=== PATIENT | male | born 1990 | race Caucasian/White ===

== ENCOUNTER 2016-11-23 18:15 | Inpatient (IN) | payer OTHER ==
--- NOTE | ~2016-11-23 | CR72 ---
[facility] A Service of [facility] RADIOLOGY TEXT RESULTS PATIENT: GUICHO CHACON LOCATION: [facility] : [birth year] UNIT #: [id number] AGE: [address]: Guillermo Cano MD SEX: M ORDER DR: [id number] [facility]. [place], [place] [address] [id number] I MR#: [id number] Acc #: [id number] NAME: GUICHO CHACON : 1990 SEX: M STUDY DATE/TIME: 11/23/2016 18:19 UNIT: [address] ROOM: [facility] STUDY DESCRIPTION: CR Chest Single View Portable Attending Physician: Guillermo Caon M.D. Referring Physician: Alyson Primary Care Physician Ordering Physician: Asha Yang M.D. Primary Care Physician: No Primary Care Physician MEDICAL IMAGING REPORT This report is preliminary unless electronic signature is present EXAM Portable chest. DATE OF EXAM 11/23/2016 HISTORY Chest pain, tachycardia and shortness of air today. Meth and heroin overdose. FINDINGS A single AP portable view of the chest shows both lungs to be clear. The heart is normal in size. The mediastinal contour is normal. No significant bone abnormalities are seen. IMPRESSION Normal portable chest. Dictated by... Leland Duran M.D. THIS IS AN ELECTRONICALLY VERIFIED REPORT Leland Duran M.D. at 11/24/2016 3:35 PM DFL/jt TD: 11/24/2016 00:16 JOB #: [id number] MEDICAL IMAGING REPORT [facility] A Service of [facility] RADIOLOGY TEXT RESULTS PATIENT: GUICHO CHACON LOCATION: [facility] : 89 UNIT #: [id number] AGE: [address]: Guillermo Cano MD SEX: M ORDER DR: COPY
--- NOTE | ~2016-11-23 | DS ---
Unit #: [id number] #: [id number] Patient: GUICHO KERR [id number] [address] [address] [id number] I MR#: [id number] NAME: GUICHO KERR ROOM: 337 Age: 26 Sex: M Admission Date: 11/23/2016 : 1990 Discharge Date: 11/24/2016 Attending Physician: Guillermo Cano M.D. Primary Care Physician: No Primary Care Physician DISCHARGE SUMMARY PRINCIPAL DIAGNOSES 1. 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 2. Acute rhabdomyolysis. 3. Transaminitis. 4. Polysubstance abuse, including amphetamines and heroin. CONSULTANTS Dr. Heath, psychiatry. DIAGNOSTIC STUDIES IMAGING: Chest x-ray on November 23, 2016, which was normal. CLINICAL HISTORY AND HOSPITAL COURSE Mr. Kerr is a 26-year-old male who was brought to the emergency department with sensation of his heart racing and being increasing confused and agitated. Please refer to H and P for further details. Urine drug screen in the emergency department was positive for amphetamines. The patient was also found to be in acute rhabdomyolysis with a CK level of greater than 5,000. AST and ALT were also elevated secondary to his rhabdomyolysis, and the patient was subsequently admitted. The patient was placed on IV fluids and provided Haldol p.r.n. The patient slept most of the night and awakened the morning of the 25th alert and oriented x3 per nursing. The patient was adamant that he was going home, and given he was alert and oriented x3, he signed out against medical advice prior to being seen by me. Dictated by... Felicia Zarate M.D. REGI/susie TD: 11/26/2016 11:34 JOB #: [id number] Unit #: [id number] #: [id number] Patient: GUICHO KERR DISCHARGE SUMMARY X Felicia Zarate MD DISCHARGE SUMMARY
--- NOTE | ~2016-11-23 | EKG ---
PATIENT: GUICHO CHACON UNIT #: [id number] Ventricular Rate: 131 BPM Atrial Rate: 131 BPM P-R Interval: 130 ms QRS Duration: 74 ms Q-T Interval: 298 ms QTC Calculation(Bezet): 440 ms P [place]: 82 degrees Calculated R [place]: 83 degrees Calculated T [place]: 68 degrees Diagnosis Line: Sinus tachycardia Diagnosis Line: Otherwise normal ECG Diagnosis Line: When compared with ECG of 11-MAY-2016 10:32, Diagnosis Line: Vent. rate has increased BY 57 BPM Diagnosis Line: Confirmed by PATY LINDO MD ([id number]) on Diagnosis Line: 11/25/2016 10:22:30 PM INTERPRETING MD: SHANTA
--- NOTE | ~2016-11-23 | HP ---
Unit #: [id number] #: [id number] Patient: GUICHO CHACON [id number] [address] [address] [id number] I MR#: [id number] NAME: GUICHO CHACON ROOM: 337 Age: 26 Sex: M Admission Date: 11/23/2016 : 1990 Attending Physician: Guillermo Cano M.D. Referring Physician: No Primary Care Physician Primary Care Physician: No Primary Care Physician HISTORY AND PHYSICAL CHIEF COMPLAINT Tachycardia. DISCUSSION This is a 26-year-old gentleman who has a history of (1) substance abuse, use of methamphetamine and heroin, long history of IV drug abuse, and history of kidney stones. He presented to ER with chief complaining of having agitation, tachycardic. He was using the methamphetamine today. He came to the emergency room. In the ER, on workup, patient was found to have rhabdomyolysis. CK total 5047, AST 76, ALT 53, and been admitted. PAST MEDICAL HISTORY 1. Long history of (2) substance use with IV heroin and history of methamphetamine use with psychosis. 2. History of kidney stones, status post multiple lithotripsies. ALLERGIES No known drug allergies. HOME MEDICATIONS Does not take any medication at home. TWELVE REVIEW OF SYSTEMS CONSTITUTIONAL: No fever. No chills. CARDIOVASCULAR: No chest pain. PULMONARY: No cough. No wheezing. GI: No nausea. No vomiting. PHYSICAL EXAMINATION GENERAL APPEARANCE: Young man lying in the bed comfortably. Currently not in any distress. VITAL SIGNS: Current vitals are following: Temperature 98.4, heart rate 143, respiratory rate 18, blood pressure is 153/66, and repeat heart rate now is 116. HEENT: Pupils equal, round, and reactive to light and accommodation. Head normocephalic and atraumatic. NECK: Supple. No JVD. HEART: S1 and S2. Regular rate and rhythm. ABDOMEN: Soft, nontender, and nondistended. Bowel sounds positive. EXTREMITIES: Inspection normal. No cyanosis, no clubbing, and no edema. NEUROLOGICAL: No focal neurologic deficit. DIAGNOSTIC STUDIES LABORATORY: Workup is following: Urine drug screen is positive for Unit #: [id number] #: [id number] Patient: GUICHO CHACON. Sodium 137, potassium 3.6, chloride 105, glucose 107, BUN 13, creatinine 1, AST 76, and ALT 63. CK total 5047. UA is negative. Ammonia level is 34. Lactic acid level is 1.6. INR is 1.1. Troponin less than 0.05. White count is 14, hemoglobin 12, hematocrit 38, and platelets 226. Glucose 104. IMAGING: Chest x-ray negative. ASSESSMENT AND PLAN 1. Polysubstance abuse. 2. Methamphetamine abuse with psychosis. 3. Rhabdomyolysis. 4. Abnormal LFT. Plan to admit to hospital. IV fluids. Eliu tracy Psychiatry, Dr. Heath, to evaluate. Dictated by Wild Maharaj/mechelle TD: 11/24/2016 11:06 JOB #: [id number] HISTORY AND PHYSICAL X X HISTORY AND PHYSICAL
[2016-11-23 18:49] LABS: BASOPHIL% 0.1 % (0-2.5); EOSINOPHIL% 0.1 % (0.0-7.0); HEMATOCRIT 38.8 % (38.0-50.0); HEMOGLOBIN 12.7 gm/dL (13.0-16.0); LYMPHOCYTE# 0.8 X10e3 (1.0-3.5); LYMPHOCYTE% 5.3 % (17.0-45.0); MEAN CELL VOLUME 94.5 FL (83-96); MEAN CORPUSCULAR HGB CONC 32.8 g/dL (30-36); MEAN PLATELET VOLUME 8.1 FL (6.5-11.5); MONOCYTE# 1.4 X10e3 (0-1.0); MONOCYTE% 9.8 % (3.0-12.0); NEUTROPHIL# 12.2 X10e3 (1.5-7.1); NEUTROPHIL% 84.7 % (40-75); PLATELET COUNT 226 X10e3 (140-420); RED BLOOD COUNT 4.11 X10e (3.90-5.60); RED CELL DISTRIBUTION WIDTH 13.8 % (11.0-15.5); WHITE BLOOD COUNT 14.4 X10e3 (4.0-10.5)
[2016-11-23 18:54] LABS: DIFF IND NO
[2016-11-23 18:57] LABS: POC - CKMB 1.3 ng/mL (0.0-7.9); POC - TROPONIN <0.05 ng/mL (<=0.05)
[2016-11-23 19:01] LABS: INR 1.1; PARTIAL THROMBOPLASTIN TIME 24.2 SECONDS (23.5-31.3); PROTHROMBIN TIME (PATIENT) 11.9 SECONDS (9.6-11.5)
[2016-11-23 19:09] LABS: URINE SOURCE CLEAN CATCH
[2016-11-23 19:21] LABS: URINE APPEARANCE CLEAR; URINE BILIRUBIN NEG (NEG); URINE BLOOD NEG (NEG); URINE COLOR YELLOW; URINE GLUCOSE NEG (NEG); URINE KETONE 2+ (NEG); URINE LEUKOCYTE ESTERASE NEG (NEG); URINE NITRATE NEG (NEG); URINE PH 6.5 (5-8); URINE PROTEIN TRACE (NEG); URINE SPECIFIC GRAVITY 1.018 (1.003-1.035); URINE UROBILINOGEN 0.2 MG/DL (NEG)
[2016-11-23 19:23] LABS: ALBUMIN SERUM 4.4 g/dL (3.5-5.0); ALKALINE PHOSPHATASE 52 U/L (32-92); ALT (SGPT) 53 U/L (10-40); AST (SGOT) 76 U/L (10-42); BILIRUBIN, DIRECT 0.1 mg/dL (0.0-0.2); BILIRUBIN,INDIRECT 0.7 mg/dL (0.0-0.9); BILIRUBIN,TOTAL 0.8 mg/dL (0.2-2.0); BLOOD UREA NITROGEN 13 mg/dL (9-23); CALCIUM SERUM 8.6 mg/dL (8.4-10.2); CARBON DIOXIDE 24 mmol/L (22-31); CHLORIDE 105 mmol/L (100-111); GLOM FILT RATE Estimated ABOVE60 mL/min (>60); GLUCOSE FASTING 107 mg/dL (70-110); POTASSIUM 3.6 mmol/L (3.5-5.1); PROTEIN TOTAL SERUM 7.1 g/dL (6.0-8.3); SALICYLATE <4.0 mg/dL; SODIUM 138 mmol/L (135-145)
[2016-11-23 19:28] LABS: CULTURE INDICATED? NO
[2016-11-23 19:36] LABS: ACETAMINOPHEN <10 ug/mL; ALCOHOL BLOOD <5 mg/dL (0); CPK (CREATINE PHOSPHOKINASE) 5047 IU/L (36-174)
[2016-11-23 19:46] LABS: AMPHETAMINE POS (NEG); BARBITURATES NEG (NEG); BENZODIAZEPINES NEG (NEG); COCAINE NEG (NEG); MARIJUANA NEG (NEG); OPIATES NEG (NEG); TRICYCLIC ANTIDEPRESSANTS NEG (NEG); U METHADONE NEG (NEG)
[2016-11-23 20:57] LABS: POC - CKMB 2.1 ng/mL (0.0-7.9); POC - TROPONIN 0.05 ng/mL (<=0.05)
[2016-11-24 05:56] LABS: BASOPHIL# 0.1 X10e3 (0-0.3); BASOPHIL% 0.7 % (0-2.5); EOSINOPHIL# 0.2 X10e3 (0-0.7); HEMOGLOBIN 12.5 gm/dL (13.0-16.0); LYMPHOCYTE# 3.3 X10e3 (1.0-3.5); LYMPHOCYTE% 38.5 % (17.0-45.0); MEAN CELL VOLUME 93.8 FL (83-96); MEAN CORPUSCULAR HEMOGLOBIN 30.8 PG (28-34); MEAN CORPUSCULAR HGB CONC 32.9 g/dL (30-36); MONOCYTE# 0.9 X10e3 (0-1.0); MONOCYTE% 10.3 % (3.0-12.0); NEUTROPHIL# 4.1 X10e3 (1.5-7.1); NEUTROPHIL% 48.5 % (40-75); PLATELET COUNT 211 X10e3 (140-420); RED BLOOD COUNT 4.05 X10e (3.90-5.60); RED CELL DISTRIBUTION WIDTH 13.8 % (11.0-15.5); WHITE BLOOD COUNT 8.5 X10e3 (4.0-10.5)
[2016-11-24 05:59] LABS: DIFF IND NO
[2016-11-24 07:01] LABS: ALBUMIN SERUM 3.9 g/dL (3.5-5.0); ALKALINE PHOSPHATASE 47 U/L (32-92); ALT (SGPT) 47 U/L (10-40); AST (SGOT) 67 U/L (10-42); BILIRUBIN,TOTAL 0.5 mg/dL (0.2-2.0); BLOOD UREA NITROGEN 10 mg/dL (9-23); BUN/CREATININE RATIO 11.11; CALCIUM SERUM 8.7 mg/dL (8.4-10.2); CARBON DIOXIDE 24 mmol/L (22-31); CHLORIDE 107 mmol/L (100-111); CREATININE SERUM 0.9 mg/dL (0.6-1.4); GLOM FILT RATE Estimated ABOVE60 mL/min (>60); GLUCOSE FASTING 105 mg/dL (70-110); POTASSIUM 3.7 mmol/L (3.5-5.1); PROTEIN TOTAL SERUM 6.3 g/dL (6.0-8.3); SODIUM 138 mmol/L (135-145)
[2016-11-24 07:02] LABS: CPK (CREATINE PHOSPHOKINASE) 4867 IU/L (36-174)
== END 2016-11-24 12:22 | disposition left against medical advice (07) | DRG 558 ==
LOC: CED 18:15 → CEDOF 21:15 → C3A PCU 23:57
PROVIDERS: Internal Medicine; Student in an Organized Health Care Education/Training Program
DX: M62.82 Rhabdomyolysis (principal); F11.10 Opioid abuse, uncomplicated; F15.159 Other stimulant abuse with stimulant-induced psychotic disorder, unspecified; Z87.442 Personal history of urinary calculi; R79.89 Other specified abnormal findings of blood chemistry
CPT/HCPCS: 36415; 71010; 80048; 80053; 80076; 80307; 81003; 82140; 82550; 82553; 82947; 83605; 84484; 85025; 85610; 85730; 87040; 93005; 96361; 96374; 96375; 96376; 99285; G0480; J1630; J1953; J2060; J2310; J2405; J3486

== ENCOUNTER 2017-03-04 20:00 | Inpatient (IN) | payer OTHER ==
--- NOTE | ~2017-03-04 | PA ---
Unit #: [id number] #: [id number] Patient: KYE CHACON [id number] [facility] [address] [place] [address] [id number] I MR#: [id number] NAME: KYE CHACON ROOM: [facility] Age: 26 Sex: M Admission Date: 03/04/2017 : 1990 Date of Assessment: Attending Physician: Rishabh Heath M.D. Admitting Physician: Rishabh Heath M.D. Primary Care Physician: Primary Care Physician No PSYCHIATRIC ASSESSMENT REASON FOR ADMISSION Suicidal ideation. HISTORY OF PRESENT ILLNESS Kye Chacon is a 26-year-old male, presented with suicidal ideation with a plan to overdose on meth. The patient reported also reporting paranoid ideation, auditory hallucination telling him that the others are after him. The patient reported IV meth abuse from the last 2 to 3 months using a gram. The patient denied any suicidal or homicidal ideation, but having psychotic symptom as mentioned above, paranoid ideation and hearing a voice. The patient reported tobacco use, age of onset 15; opioid, age of onset 18; amphetamine, age of onset 25. Longest period of sobriety 18 months and last period of sobriety in 2013. The patient reported blackouts, history of IV drug use, history of withdrawal symptoms. No history of any HIV or hepatitis. The patient presenting with depressed mood, irritability, unpleasant dream, muscle spasm, irritability. Needing inpatient admission for psychiatric stabilization. PAST PSYCHIATRIC HISTORY Remarkable for history of inpatient treatment in 2017 for detox and suicidal ideation. FAMILY HISTORY AND SOCIAL HISTORY Unremarkable. No known history of abuse or legal problem. MEDICAL HISTORY Unremarkable for any chronic medical condition. Musculoskeletal; muscle strength and tone, no atrophy or abnormal movement. Gait normal except as mentioned above. MEDICATION HISTORY None. ALLERGIES No known drug allergies. SUBSTANCE ABUSE HISTORY Please see above. REVIEW OF SYSTEMS HEENT: Eyes, clear. Ears, nose, mouth, and throat; clear. CARDIOVASCULAR: Unremarkable. RESPIRATORY: Unremarkable. Unit #: [id number] #: [id number] Patient: KYE CHACON GI: Unremarkable. : Unremarkable. SKIN: Unremarkable. LYMPH NODE: Unremarkable. NEUROLOGIC: Unremarkable. ENDOCRINE: Unremarkable. HEMATOLOGIC: Unremarkable. ALLERGIC/IMMUNOLOGIC: Unremarkable. MUSCULOSKELETAL: Muscle strength and tone, no atrophy or abnormal movement. Gait normal. MENTAL STATUS EXAMINATION CONSTITUTIONAL: Measurement of vital signs; temperature 97.2, pulse 111, respirations 18, oxygen saturation 92%, blood pressure 133/79; height 5 feet 11 inches, weight 135 pounds. GENERAL APPEARANCE: The patient dressed casually. No facial deformity noted. MUSCULOSKELETAL: Please see above. PSYCHIATRIC EXAMINATION Description of speech; regular rate, normal volume. Description of thought process, goal directed. Description of association, intact. Description of abnormal psychotic thinking; sad, depressed, paranoid, hallucination. Denied any suicidal or homicidal ideation. Description of the patient's judgment; concerning everyday activity, poor. Social situation, poor. Concerning psychiatric condition, poor. Complete mental status examination; oriented in time, place, and person. Recent and remote memory, fair. Attention span and concentration, fair. Language, intact. Fund of knowledge, fair. Vocabulary, fair. Mood and affect, sad and depressed. Insight and judgment, fair to poor. ASSETS AND LIABILITIES Assets; the patient is articulate, able to take care of his ADL. Liability; history of substance abuse. ADMITTING DIAGNOSES Psychiatric: Major depressive disorder, recurrent, severe, F33.2; amphetamine use disorder, severe, F15.20. Secondary diagnosis: Deferred. Medical diagnosis: None. Stressors: Psychosocial stressor. PSYCHIATRIC PLAN AND TREATMENT GOAL 1. Advised to admit the patient on the inpatient unit. Provide safe, supportive, and structured environment. 2. Ordered labs; CBC, CMP, UA, and UDS. 3. Precaution for psychosis. 4. Detox protocol and detox monitoring. Advised to start the patient on Zyprexa 10 mg b.i.d. for psychotic symptom, trazodone 75 mg q.h.s. p.r.n. for sleep. 5. The patient to attend all the programing on the inpatient unit with group therapy, individual therapy, family session. Treatment goal to attain euthymic mood, gain insight into his problem, and learn coping skills. Unit #: [id number] #: [id number] Patient: KYE CHACON DISCHARGE PLAN Plan to stabilize the patient and consider followup in outpatient program. ESTIMATED LENGTH OF STAY 5 days. Dictated by... Wild Patterson/alva TD: 03/06/2017 03:37 JOB #: [id number] PSYCHIATRIC ASSESSMENT Page 1 of 1 X Rishabh Heath MD PSYCHIATRIC ASSESSMENT
--- NOTE | ~2017-03-04 | A ---
[facility] Nutrition Therapy DATE: 03/06/17 Patient: GUICHO CHACON Physician: RENITA Address: NO PERMANENT ADDRESS Room/Bed: P184-1 [facility], Zip: [place] [address] Admit Date: 03/04/17 Date of : [birth year] Height: 5 11 Weight: [phone] NUTRITIONAL ASSESSMENT: REASON: LOW BMI (18.8), 2 NUTRITIONAL RISK POINTS- UNINTENTIONAL WEIGHT LOSS, CHEWING/SWALLOWING DIFFICULTIES PATIENT ADMITTED FOR METH DETOX, SI, AND PARANOIA PMH: LONG HX ILLICIT SUBSTANCE ABUSE, KIDNEY STONES Anthropometrics: HT: 5'11", WT: 135#, BMI: 18.8, %IBW: 78 Labs: 03/05/17 - NUTRITIONAL LABS WNL Meds: ZYPREXA, TRAZODONE Assessment: PATIENT IS A 26 Y/O MALE ADMITTED FOR METH DETOX, SI, AND PARANOIA. PATIENT IS CURRENTLY UNEMPLOYED, HOMELESS, SMOKES 1 PPD, HAS HAD DAILY METH USE FOR LAST 4 MONTHS, AND HE HAS A HX OF OPIOID ABUSE. PATIENT WAS NOTED TO BE VERY IRRITABLE. UPON ADMIT PATIENT STATED A POOR APPETITE WITH A 40# WEIGHT LOSS X LAST SEVERAL MONTHS, AND HE HAS NOT BEEN SLEEPING. WEIGHT HX PER MEDITECH SHOWS A 14# WEIGHT GAIN OVER LAST 4 MONTHS. NURSING REPORTS FAIR PO INTAKES. PSYCH MEDS MAY CAUSE WEIGHT AND APPETITE FLUCTUATIONS. THIS RD SUSPECTS WEIGHTS AND APPETITE WILL STABILIZE, AND POSSIBLY INCREASE, FOLLOWING DETOX. PATIENT SCORED A RISK POINT FOR CHEWING/SWALLOWING DIFFICULTIES. IT IS NOTED THAT PATIENT HAS C/O PAIN FROM HIS SOFT PALATE. HE IS ON A MECHANICAL SOFT DIET AND RECEIVES ENSURE TID. THERE ARE NO SKIN OR GI ISSUES NOTED ATT. Dx: INADEQUATE NUTRIENT INTAKE R/T CURRENT CONDITION, DETOX AEB LOW BMI, <90% IBW, 2 NUTRITIONAL RISK POINTS Intervention: MECHANICAL SOFT DIET, ENSURE TID, MEDS PER MD, DETOX, PSYCH Monitoring, Evaluation and Goals: 1. ADEQUATE PO INTAKES >50% OF MEALS 2. PREVENT, CORRECT MICRO/MACRO NUTRIENT DEFICIENCIES 3. WEIGHT; PROMOTE A STEADY WEIGHT GAIN TOWARDS A HEALTHY BMI OF 19-25 MONITOR: WEIGHTS, LABS, PO/FLUID/SUPPLEMENT INTAKES Recommendations: 1. CONTINUE MECHANICAL SOFT DIET WITH ENSURE TID TOLERATED. IF PATIENT UNABLE TO TOLERATE CURRENT DIET OR HAS FUTHER C/O CHEWING DIFFICULTIES PLEASE CONSULT HOSIERY KNITTER FOR [facility] Nutrition Therapy DATE: 03/06/17 Patient: GUICHO CHACON Physician: RENITA Address: NO PERMANENT ADDRESS Room/Bed: P184-1 [facility], Zip: [place] [address] Admit Date: 03/04/17 Date of : [birth year] Height: 5 11 Weight: [phone] FURTHER ASSESSMENT 2. ENCOURAGE ADEQUATE PO, FLUID, AND SUPPLEMENT INTAKES 3. OBTAIN WEIGHTS ROUTINELY (EVERY 3-4 DAYS) TO ENSURE PATIENT HAS ADEQUATE ORAL INTAKE RD TO F/U PER PROTOCOL AND PRN R/T PATIENT MILD/MODERATELY COMPROMISED Respectfully, PHILLIP BOUCHER, DAVID, LD [employer] [facility] cc: client file
--- NOTE | ~2017-03-04 | HP ---
Unit #: [id number] #: [id number] Patient: KYE CHACON [id number] [place] [address] [id number] MR#: [id number] NAME: KYE CHACON ROOM: [facility] Age: 26 Sex: M Admission Date: 03/04/2017 : 1990 Attending Physician: Rishabh Heath M.D. Admitting Physician: Rishabh Heath M.D. Primary Care Physician: Primary Care Physician No HISTORY AND PHYSICAL HISTORY OF PRESENT ILLNESS Kye is a 26 year old admitted to [facility] because of his drug use. He shoots meth. PAST MEDICAL HISTORY 1. Long history of illicit substance abuse to include IV methamphetamine. 2. History of kidney stones. PAST SURGICAL HISTORY 1. Multiple lithotripsies 2. Rhinoplasty. ALLERGIES No known drug allergies. SOCIAL HISTORY Smokes one pack per day. Denies alcohol. Admits to a long history of illicit drug use to include IV methamphetamine. FAMILY HISTORY Medically noncontributory. REVIEW OF SYSTEMS CONSTITUTIONAL: No fever or chills. HEENT: Denies any sore throat, ear pain or runny nose. CARDIOVASCULAR: Denies chest pain, irregular heart rhythm or palpitations. CHEST: Denies shortness of breath or cough. No hemoptysis. GASTROINTESTINAL: Denies nausea, vomiting, diarrhea or chronic constipation. ENDOCRINE: Denies history of increased thirst or urination. No recent significant weight loss or gain. GENITOURINARY: Denies dysuria, frequency, or hematuria. SKIN: Denies any rashes. HEMATOLOGIC: Denies history of increased bleeding or bruising. MUSCULOSKELETAL: Denies any hot, swollen joints. No generalized muscle pain. NEUROLOGIC: Denies problems with vision or speech. No frequent, severe headaches. No numbness, tingling or weakness in any extremities. Denies loss of bladder or bowel control. CURRENT MEDICATIONS Unit #: [id number] #: [id number] Patient: KYE CHACON 1. Zyprexa 10 mg b.i.d. 2. Trazodone 75 mg p.r.n. 3. Milk of Magnesia p.r.n. 4. Maalox p.r.n. 5. Tylenol p.r.n. 6. Nicotine patch 14 mg q day PHYSICAL EXAMINATION GENERAL: Alert, well-nourished, in no apparent distress. VITAL SIGNS: Blood pressure 32/80, heart rate 80, respirations 16, temperature 98.6. WEIGHT: 135 pounds. HEIGHT: 5'11". SKIN: Warm and dry without rash or lesion. HEENT: Normocephalic. TMs not viewed. Oral and nasal passages clear. Conjunctivae clear. Pupils equal, round and reactive to light and accommodation. Extraocular movements intact. NECK: Supple without lymphadenopathy or thyromegaly. HEART: Regular rate and rhythm without murmur. LUNGS: Clear. ABDOMEN: Soft, nontender. : Not done. EXTREMITIES: No evidence of cyanosis, clubbing or edema. Moves all extremities without focal deficit. NEUROLOGICAL: Grossly within normal limits. Cranial Nerves: II: Visual cifuentes are intact. III, IV AND : Extraocular movements are intact. Pupils are equal, round and reactive to light. V: Facial sensation is grossly normal. VII: Facial movements and expression are normal. VIII: Auditory acuity grossly intact. IX, X: Uvula is midline. Phonation is normal. XI: Patient shrugs shoulders and turns head normally. XII: Tongue protrudes in the midline. Sensory and Motor Function: Sensory and motor sensation is grossly normal. Motor: moves all extremities well. Coordination: Gait is normal. Deep Tendon Reflexes: Intact. IMPRESSION Psychiatric admission RECOMMENDATIONS PSYCHIATRIC: Per psychiatrist. MEDICAL: I see no contraindications to participating in facility's activities. MEDICAL PROGNOSIS Good. MEDICAL CONDITION Stable. Dictated by... Amanda White P.A.-C. for Jono Burnett M.D. Unit #: [id number] #: [id number] Patient: KYE CHACON OLGA LIDIA/walter TD: 03/05/2017 21:43 JOB #: [id number] HISTORY AND PHYSICAL Page 1 of 1 X Amanda White HISTORY AND PHYSICAL
--- NOTE | ~2017-03-04 | PN ---
Unit #: [id number] #: [id number] Patient: GUICHO KERR [id number] [facility] [address] [place] [address] [id number] I MR#: [id number] NAME: GUICHO KERR ROOM: [facility] Age: 26 Sex: M Admission Date: 03/04/2017 : 1990 Attending Physician: Rishabh Heath M.D. Admitting Physician: Rishabh Heath M.D. Primary Care Physician: Primary Care Physician Alyson OBRIEN PROGRESS NOTES DATE OF SERVICE 03/06/17 DISCUSSION Mr. Guicho Kerr is a 26-year-old male seen on 03/06/17. Patient dressed casually, lying comfortably in bed. Patient was very irritable, angry. Patient reported, "Just let me sleep." Patient reported he does not have any place to go. Patient denied any suicidal or homicidal ideation but still irritable, therefore discharge was changed for tomorrow. Patient still seclusive, isolative. Reported hearing voices but not interacting with anyone, isolative, withdrawn. Patient sleeping all day, does not want to participate in group. Irritable with staff but denied any suicidal or homicidal ideation. Vital signs: 98.4, 72, 18, 123/71 COMPLETE REVIEW OF SYSTEMS Unremarkable. MENTAL STATUS EXAMINATION GENERAL APPEARANCE: Patient dressed casually. ATTENTION SPAN AND CONCENTRATION: Fair. Oriented in place and person. MOOD AND AFFECT: Labile, angry, irritable, disrespectful. RECENT AND REMOTE MEMORY: Poor. INSIGHT AND JUDGMENT: Poor. DIAGNOSIS Psychosis secondary to substance abuse, methamphetamine abuse ASSESSMENT/PLAN Advised to continue with current medication with the plan to consider discharge tomorrow. Patient at this time does not want to go because he does not have any place. Will request social security assessor to look for placement and follow up. Dictated by... Rishabh Heath M.D. [facility] [place] Unit #: [id number] #: [id number] Patient: GUICHO KERR TD: 03/07/2017 23:10 JOB #: [id number] [facility] PROGRESS NOTES Page 1 of 1 X Rishabh Heath MD PROGRESS NOTE
--- NOTE | ~2017-03-04 | PN ---
Unit #: [id number] #: [id number] Patient: KYE KERR [id number] [facility] [address] [place] [address] [id number] I MR#: [id number] NAME: KYE KERR ROOM: [facility] Age: 26 Sex: M Admission Date: 03/04/2017 : 1990 Attending Physician: Rishabh Heath M.D. Admitting Physician: Rishabh Heath M.D. Primary Care Physician: Primary Care Physician Alyson OBRIEN PROGRESS NOTES DATE 03/05/2017 DISCUSSION Kye Kerr is a 26-year-old male. Patient interviewed. Chart reviewed. Obtained information from nursing staff. Patient compliant, cooperative. Mood sad, dysphoric, flat affect, withdrawn, guarded, paranoid. Complete review of system unremarkable. MENTAL STATUS EXAMINATION General appearance, patient dressed casually. Attention span, concentration fair. Oriented in place and person. Mood and affect labile. Speech monotone. Thought process concrete. Patient guarded, paranoid, auditory hallucination, withdrawn, isolative. Recent and remote memory poor. Insight and judgement poor. DIAGNOSES 1. Mood disorder NOS. 2. Amphetamine use disorder. 3. Psychosis NOS. ASSESSMENT/PLAN Advised to continue with current medication and start Zyprexa. If needed, consider adjustment of medication. Continue with inpatient programming for safety. Dictated by... Wild Patterson/erica TD: 03/06/2017 15:21 JOB #: [id number] Unit #: [id number] #: [id number] Patient: KYE KERR PROGRESS NOTES Page 1 of 1 X Rishabh Heath MD X PROGRESS NOTE
--- NOTE | ~2017-03-04 | DS ---
Unit #: [id number] #: [id number] Patient: GUICHO CHACON [id number] [facility] [address] [place] [address] [id number] I MR#: [id number] NAME: GUICHO CHACON ROOM: [facility] Age: 26 Sex: M Admission Date: 03/04/2017 : 1990 Discharge Date: 03/07/2017 Attending Physician: Rishabh Heath M.D. Primary Care Physician: Primary Care Physician No DISCHARGE SUMMARY REASON FOR ADMISSION Suicidal ideation, paranoia, detox. DIAGNOSTIC STUDIES LABORATORY RESULTS: Not available at this time. Urine drug screen is positive for amphetamines. HOSPITAL COURSE The patient was admitted to inpatient unit on 03/04/2017 and discharged on 03/07/2017. The patient was uncooperative during his stay, seclusive, isolative, not invested in treatment, somewhat guarded. The patient was treated with Zyprexa, responded well, but refusing to leave as he reports that he has no place to live. The patient was explained that the social security assessor will help in finding a place, but behavior ballard he was very belligerent on the unit, mad, angry, upset. The patient was subsequently discharged with a plan to follow up in outpatient clinic. The patient denied any suicidal or homicidal ideation at the time of discharge. The patient was not cooperative with the treatment. The patient was subsequently discharged with a plan to follow up in outpatient clinic. DISCHARGE MEDICATIONS Zyprexa 10 mg at bedtime for psychosis and mood stabilization. DISCHARGE DIAGNOSES Psychiatric: 1. Mood disorder, not otherwise specified, F32.9. 2. Amphetamine use disorder, severe, F15.20. Secondary diagnosis: Deferred. Medical diagnosis: None. Stressors: Psychosocial stressors. DISCHARGE INSTRUCTIONS The patient is to follow up in outpatient clinic as per social security assessor. CONDITION ON DISCHARGE The patient was pleasant and cooperative, but somewhat irritable and mad. PROGNOSIS Guarded. Unit #: [id number] #: [id number] Patient: GUICHO CHACON DIET AND ACTIVITY As tolerated. Dictated by... Rishabh Heath M.D. MARILEE/alva TD: 03/08/2017 04:02 JOB #: [id number] DISCHARGE SUMMARY Page 1 of 1 X Rishabh Heath MD X DISCHARGE SUMMARY
[2017-03-05 12:31] LABS: BASOPHIL% 0.6 % (0-2.5); EOSINOPHIL# 0.4 X10e3 (0-0.7); EOSINOPHIL% 5.3 % (0.0-7.0); HEMATOCRIT 39.5 % (38.0-50.0); MEAN CELL VOLUME 96.2 FL (83-96); MEAN CORPUSCULAR HEMOGLOBIN 31.7 PG (28-34); MEAN PLATELET VOLUME 8.3 FL (6.5-11.5); MONOCYTE# 0.9 X10e3 (0-1.0); NEUTROPHIL# 3.5 X10e3 (1.5-7.1); NEUTROPHIL% 51.1 % (40-75); PLATELET COUNT 236 X10e3 (140-420); RED CELL DISTRIBUTION WIDTH 13.5 % (11.0-15.5); WHITE BLOOD COUNT 6.8 X10e3 (4.0-10.5)
[2017-03-05 12:37] LABS: DIFF IND NO
[2017-03-05 12:50] LABS: ALBUMIN SERUM 3.8 g/dL (3.5-5.0); BILIRUBIN,TOTAL 0.8 mg/dL (0.2-2.0); CREATININE SERUM 0.9 mg/dL (0.6-1.4); GLOM FILT RATE Estimated 116.6 mL/min (>60); POTASSIUM 4.1 mmol/L (3.5-5.1); PROTEIN TOTAL SERUM 6.3 g/dL (6.0-8.3)
[2017-03-06 09:48] LABS: URINE APPEARANCE TURBID; URINE BILIRUBIN NEG (NEG); URINE BLOOD NEG (NEG); URINE COLOR YELLOW; URINE GLUCOSE NEG (NEG); URINE KETONE NEG (NEG); URINE LEUKOCYTE ESTERASE NEG (NEG); URINE NITRATE NEG (NEG); URINE PROTEIN NEG (NEG); URINE SPECIFIC GRAVITY 1.016 (1.003-1.035); URINE UROBILINOGEN 0.2 MG/DL (NEG)
[2017-03-06 10:55] LABS: AMPHETAMINE POS (NEG); BARBITURATES NEG (NEG); BENZODIAZEPINES NEG (NEG); COCAINE NEG (NEG); MARIJUANA NEG (NEG); OPIATES NEG (NEG); TRICYCLIC ANTIDEPRESSANTS NEG (NEG); U METHADONE NEG (NEG)
== END 2017-03-07 12:24 | DRG 897 ==
LOC: P1E 22:19
PROVIDERS: Psychiatry & Neurology Psychiatry
PROC: HZ2ZZZZ Detoxification Services for Substance Abuse Treatment (ICD-10-PCS; principal; 2017-03-04)
DX: F15.20 Other stimulant dependence, uncomplicated (principal); R45.851 Suicidal ideations; Z87.442 Personal history of urinary calculi; F17.210 Nicotine dependence, cigarettes, uncomplicated; F29 Unspecified psychosis not due to a substance or known physiological condition; F39 Unspecified mood [affective] disorder
CPT/HCPCS: 80053; 80307; 81003; 85025